=== PATIENT | male | born 1985 | race Hispanic/Latino ===

== ENCOUNTER 2019-04-17 11:28 | Emergency (ER) | payer SELFPAY ==
[2019-04-17 11:56] LABS: Absolute Lymphocytes (CBC) 2.4 K/uL (0.7-4.9); Basophils % 0.8 % (0-1.3); Hematocrit 41.1 % (39.6-49.0); Lymphocytes % 30.7 % (15.3-44.8); RBC Red Blood Cell Count 4.42 M/uL (4.33-5.43)
[2019-04-17 11:57] LABS: Protime INR 0.98
--- NOTE | 2019-04-17 12:10 | EKG ---
Test Date: 2019-04-17 Test Time: 11:46:01 Wrapper Stripper: AXEL MEASUREMENT RESULTS: Intervals: Rate: 52 WA: 146 QRSD: 98 QT: 410 QTc: 381 [place]: P: 27 WA: 146 QRS: 82 T: 68 INTERPRETIVE STATEMENTS: Sinus bradycardia Early repolarization Otherwise normal ECG Compared to ECG 07/10/2017 15:47:58 Early repolarization now present Sinus rhythm no longer present Sinus arrhythmia no longer present Electronically Signed On 04-17-19 12:09:57 CDT by Jose Alfredo Adkins
[2019-04-17 12:21] LABS: ALT/SGPT 14 U/L (12-78); AST/SGOT 12 U/L (15-37); Albumin 3.3 g/dL (3.4-5.0); Alkaline Phosphatase 67 U/L (45-117); BUN Blood Urea Nitrogen 11 mg/dL (7-18); Bicarbonate 30 mmol/L (21-32); Bilirubin Direct 0.1 mg/dL (0-0.2); Bilirubin Total 0.4 mg/dL (0.2-1.0); Glucose Level 89 mg/dL (74-106); Potassium 3.8 mmol/L (3.5-5.1); Protein, Total 6.6 g/dL (6.4-8.2); Sodium Level 143 mmol/L (136-145)
[2019-04-17 13:58] LABS: Urine Blood NEGATIVE (NEG); Urine Glucose NEGATIVE (NEG); Urine Protein NEGATIVE (NEG); Urine Specific Gravity >1.030 (1.005-1.030); Urine pH 5.5 (5.0-7.0)
[2019-04-17 14:01] LABS: Barbiturates NEGATIVE (NEGATIVE); Benzodiazepines NEGATIVE (NEGATIVE); Cocaine POSITIVE (NEGATIVE); METHAMPHETAM NEGATIVE (NEGATIVE); Methadone NEGATIVE (NEGATIVE); Opiates NEGATIVE (NEGATIVE); Phencyclidine NEGATIVE (NEGATIVE); THC Cannibis NEGATIVE (NEGATIVE)
--- NOTE | 2019-04-17 14:36 | EDPHYS ---
Physician Documentation [facility] Name: Wisam Braun Age: 33 yrs Sex: Male : 1985 Arrival Date: 04/17/2019 Time: 11:28 Bed 5 Private MD: ED Physician Juan Valdez HPI: 04/17 11:35 This 33 yrs old Male presents to ER via EMS with complaints of Altered Mental jmm Status. 11:35 The patient presents with intoxication. Onset: The symptoms/episode began/occurred jmm acutely. Possible causes: drug use, synthetic marijuana. Associated signs and symptoms: Pertinent negatives: abdominal pain, chest pain, headache, lightheadedness, nausea, vomiting. This is a 33 year old male with no chronic medical conditions that presents to the ED with no complaints. Patient arrived EMS. Patient admits to synthetic marijuana use. Denies other types of drug use. Denies chest pain, denies vomiting, denies shortness of breath. . Historical: - Allergies: 11:31 NKA; hb - Home Meds: 11:31 None [Active]; hb - PMHx: 11:31 None; hb - PSHx: 11:31 None; hb - Immunization history:: Adult Immunizations up to date. - Social history:: Smoking status: Patient/guardian denies using tobacco. - Ebola Screening: : No symptoms or risks identified at this time. ROS: 11:35 Constitutional: Negative for fever, chills, and weight loss, Cardiovascular: Negative jmm for chest pain, palpitations, and edema, Respiratory: Negative for shortness of breath, cough, wheezing, and pleuritic chest pain, Abdomen/GI: Negative for abdominal pain, nausea, vomiting, diarrhea, and constipation, Neuro: Negative for headache, weakness, numbness, tingling, and seizure. 11:35 All other systems are negative. Exam: 11:35 Constitutional: This is a well developed, well nourished patient who is awake, alert, jmm and in no acute distress. Head/Face: atraumatic. Eyes: EOMI, no conjunctival erythema appreciated ENT: Moist Mucus Membranes Neck: Trachea midline, Supple Chest/axilla: Normal chest wall appearance and motion. Cardiovascular: Regular rate and rhythm. No edema appreciated Respiratory: Normal respirations, no respiratory distress appreciated Abdomen/GI: Non distended, soft Back: Normal ROM 11:35 Cardiovascular: Rate: normal, Rhythm: regular, Pulses: no pulse deficits are appreciated. 11:35 Respiratory: the patient does not display signs of respiratory distress, Respirations: normal, Breath sounds: are clear throughout. 11:35 Abdomen/GI: Inspection: abdomen appears normal, Bowel sounds: normal, Palpation: abdomen is soft and non-tender, in all quadrants. 11:35 Back: ROM is normal. 11:35 Musculoskeletal/extremity: ROM: intact in all extremities. 11:35 Skin: Appearance: Color: normal in color, Temperature: 11:35 Neuro: Orientation: is normal, Mentation: is normal, Memory: is normal. 11:35 Psych: Behavior/mood is pleasant, cooperative. Vital Signs: 11:29 BP 121 / 88; Pulse 68; Resp 16; Temp 97.8; Pulse Ox 100% on R/A; Weight 72.57 kg; hb Height 5 ft. 7 in. (170.18 cm); Pain 0/10; 12:42 BP 120 / 79; Pulse 68; Resp 16; Pulse Ox 99% ; sv 13:15 BP 102 / 53; Pulse 55; Resp 16; Pulse Ox 100% ; sv 14:14 BP 102 / 71; Pulse 56; Resp 16; Temp 97.6(TE); Pulse Ox 100% on R/A; mh5 11:29 Body Mass Index 25.06 (72.57 kg, 170.18 cm) hb MDM: 11:35 Patient medically screened. [facility] 14:33 Data reviewed: vital signs, nurses notes. Counseling: I had a detailed discussion with bari the patient and/or guardian regarding: the historical points, exam findings, and any diagnostic results supporting the discharge/admit diagnosis, lab results, the need for outpatient follow up, to return to the emergency department if symptoms worsen or persist or if there are any questions or concerns that arise at home. ED course: Patient is alert and non toxic in appearance in the ED. Patient is advised to d/c use of cocaine. Patient understood and agrees with the plan of care. . 04/17 11:35 Order name: Acetaminophen; Complete Time: 12:28 [facility] 04/17 11:35 Order name: Basic Metabolic Panel; Complete Time: 12:28 [facility] 04/17 11:35 Order name: CBC with Diff; Complete Time: 12:28 [facility] 04/17 11:35 Order name: ETOH Level; Complete Time: 12:28 [facility] 04/17 11:35 Order name: Hepatic Function; Complete Time: 12:28 [facility] 04/17 11:35 Order name: PT-INR; Complete Time: 12:28 [facility] 04/17 11:35 Order name: Ptt, Activated; Complete Time: 12:28 [facility] 04/17 11:35 Order name: Salicylate; Complete Time: 12:28 [facility] 04/17 11:35 Order name: Urine Drug Screen; Complete Time: 14:03 [facility] 04/17 11:35 Order name: EKG; Complete Time: 11:36 [facility] 04/17 11:35 Order name: EKG - Nurse/Tech; Complete Time: 12:24 [facility] 04/17 11:35 Order name: IV Saline Lock; Complete Time: 12:23 [facility] 04/17 13:50 Order name: Urine Dipstick--Ancillary (enter results); Complete Time: 14:03 04/17 11:35 Order name: Labs collected and sent; Complete Time: 12:23 [facility] 04/17 11:35 Order name: Urine Dipstick-Ancillary (obtain specimen); Complete Time: 14:27 [facility] Administered Medications: 12:28 Drug: NS 0.9% 1000 ml Route: IV; Rate: 1 bolus; Site: right antecubital; sv 13:30 Follow up: Response: No adverse reaction; IV Status: Completed infusion; IV Intake: sv 1000ml Disposition: 20:00 Co-signature as Attending Physician, Juan Valdez MD I agree with the assessment and tw4 plan of care. Disposition: 04/17/19 14:34 Discharged to Home. Impression: Cocaine abuse. - Condition is Stable. - Medication Reconciliation Form, Thank You Letter, Antibiotic Education, Prescription Opioid Use form. - Follow up: Private Physician; When: 2 - 3 days; Reason: Recheck today's complaints, Continuance of care, Re-evaluation by your physician. Signatures: Dispatcher [employer] Laura Paul RN Armani Lucero PA PA jmm Baxter, Heather, RN RN hb Wadley, Terrence, MD MD tw4 Corrections: (The following items were deleted from the chart) 14:50 14:34 04/17/2019 14:34 Discharged to Home. Impression: Cocaine abuse. Condition is sv Stable. Forms are Medication Reconciliation Form, Thank You Letter, Antibiotic Education, Prescription Opioid Use. Follow up: Private Physician; When: 2 - 3 days; Reason: Recheck today's complaints, Continuance of care, Re-evaluation by your physician. bari
--- NOTE | 2019-04-17 14:36 | ER ---
Nurse's Notes [facility] Name: Wisam Braun Age: 33 yrs Sex: Male : 1985 Arrival Date: 04/17/2019 Time: 11:28 Bed 5 Private MD: Diagnosis: Cocaine abuse Presentation: 04/17 11:29 Presenting complaint: EMS states: Found altered by mother, with synthetic marijuana hb nearby. VS WNL, BGL 69. 18g RIGHT AC, NS 750ml administered BATT PACKER. Transition of care: patient was not received from another setting of care. Onset of symptoms was April 17, 2019. Risk Assessment: Do you want to hurt yourself or someone else? Patient reports no desire to harm self or others. Initial Sepsis Screen: Does the patient meet any 2 criteria? No. Patient's initial sepsis screen is negative. Does the patient have a suspected source of infection? No. Patient's initial sepsis screen is negative. Care prior to arrival: Medication(s) given: Normal saline infusion, 750ml. 11:29 Method Of Arrival: EMS: [facility] hb 11:29 Acuity: PARRIS 2 hb Triage Assessment: 11:31 General: Appears in no apparent distress. Behavior is calm, cooperative, Reports hb synthetic marijuana use. Pain: Denies pain. Neuro: Level of Consciousness is awake, alert, obeys commands, Oriented to person, place, time, situation. Cardiovascular: Capillary refill < 3 seconds Patient's skin is warm and dry. Respiratory: Airway is patent Respiratory effort is even, unlabored, Respiratory pattern is regular, symmetrical. Historical: - Allergies: 11:31 NKA; hb - Home Meds: 11:31 None [Active]; hb - PMHx: 11:31 None; hb - PSHx: 11:31 None; hb - Immunization history:: Adult Immunizations up to date. - Social history:: Smoking status: Patient/guardian denies using tobacco. - Ebola Screening: : No symptoms or risks identified at this time. Screenin:31 Abuse screen: Denies threats or abuse. Denies injuries from another. Nutritional hb screening: No deficits noted. Tuberculosis screening: No symptoms or risk factors identified. Fall Risk None identified. Assessment: 11:51 General: Behavior is calm, cooperative, drowsy, quiet. Pain: Denies pain. Neuro: Level sg of Consciousness is awake, obeys commands, obtunded, Oriented to person, situation, Speech is normal, Facial symmetry appears normal. Cardiovascular: Patient's skin is warm and dry. Respiratory: Airway is patent Respiratory effort is even, unlabored, Respiratory pattern is regular, symmetrical. GI: Abdomen is flat, non-distended. : No signs and/or symptoms were reported regarding the genitourinary system. Derm: Skin is pink, warm \T\ dry. Musculoskeletal: No signs and/or symptoms reported regarding the musculoskeletal system. Vital Signs: 11:29 BP 121 / 88; Pulse 68; Resp 16; Temp 97.8; Pulse Ox 100% on R/A; Weight 72.57 kg; hb Height 5 ft. 7 in. (170.18 cm); Pain 0/10; 12:42 BP 120 / 79; Pulse 68; Resp 16; Pulse Ox 99% ; sv 13:15 BP 102 / 53; Pulse 55; Resp 16; Pulse Ox 100% ; sv 14:14 BP 102 / 71; Pulse 56; Resp 16; Temp 97.6(TE); Pulse Ox 100% on R/A; mh5 11:29 Body Mass Index 25.06 (72.57 kg, 170.18 cm) hb ED Course: 11:28 Patient arrived in ED. hb 11:31 Triage completed. hb 11:31 Arm band placed on. hb 11:32 Armani Coffey PA is PHCP. [facility] 11:32 Juan Valdez MD is Attending Physician. [facility] 11:45 Patient has correct armband on for positive identification. Bed in low position. Call 5 light in reach. Side rails up X2. Warm blanket given. Pulse ox on. NIBP on. 11:45 Initial lab(s) drawn, by wi, sent to lab. Maintain EMS IV. Dressing intact. Good blood sg return noted. Site clean \T\ dry. Gauge \T\ site: 18 G RAC. IV is patent, is intact, with fluids infusing freely, with good blood return. 11:52 EKG done, by auto tech. reviewed by Armani GLEASON. at1 14:49 No provider procedures requiring assistance completed. IV discontinued, intact, sv bleeding controlled, No redness/swelling at site. Pressure dressing applied. Administered Medications: 12:28 Drug: NS 0.9% 1000 ml Route: IV; Rate: 1 bolus; Site: right antecubital; sv 13:30 Follow up: Response: No adverse reaction; IV Status: Completed infusion; IV Intake: sv 1000ml Intake: 13:30 IV: 1000ml; Total: 1000ml. sv Outcome: 14:34 Discharge ordered by . bari 14:49 Discharged to home ambulatory, with family. sv 14:49 Condition: stable 14:49 Discharge instructions given to patient, Instructed on discharge instructions, follow up and referral plans. Demonstrated understanding of instructions, follow-up care. 14:50 Patient left the ED. sv Signatures: Laura Lassiter RN RN sv Gay, Steven, RN RN Armani Jane PA PA jmm Gonzales, Amanda, operations research group manager EKG Tat1 Fenr Rivera RN RN hb Martinez, Maria 5 Corrections: (The following items were deleted from the chart) 11:33 11:31 General: Appears in no apparent distress. Behavior is calm, cooperative, hb hb
[2019-04-17 15:53] VITALS: O2SAT 100
[2019-04-17 15:55] VITALS: BP 102/71; TEMP 97.6
== END 2019-04-17 14:50 | disposition home or self-care (01) ==
LOC: ER 11:28
DX: F14.10 Cocaine abuse, uncomplicated (principal)
CPT/HCPCS: 36415; 80048; 80076; 80307; 80320; 80329; 81003; 85025; 85610; 85730; 93005; 96360; 99284